=== PATIENT | female | born 1960 | race Caucasian/White ===

== ENCOUNTER 2020-04-08 08:41 | Outpatient (CLI) | payer OTHER, SELFPAY ==
--- NOTE | ~2020-04-08 | US_ITS ---
US abdomen complete INDICATION: Epigastric pain PROCEDURE: Realtime right upper abdominal ultrasound. COMPARISON: No prior studies for comparison. FINDINGS: The pancreas is normal without focal mass or pancreatic ductal dilation. Liver echotexture is normal without focal mass or intrahepatic biliary dilatation. There is normal directional flow i n the portal vein. Gallbladder is surgically absent. Common bile duct measures 4 mm. Renal echotexture is normal bilate rally without hydronephrosis, contour deforming mass or renal calculi. Right kidney measures 9.5 cm. Left kidney measures 9.8 cm. Spleen is unremarkable. Visualized aspects of the abdominal aorta and IV C are patent. IMPRESSION: 1: Unremarkable abdominal ultrasound post cholecystectomy. Reviewed, dictated and finalized at location A.
== END 2020-04-08 08:42 | disposition home or self-care (01) ==
LOC: ANHIMG 08:43
PROVIDERS: PCP Internal Medicine; Visit Provider Internal Medicine
DX: R10.13 Epigastric pain (principal)
CPT/HCPCS: 76700

== ENCOUNTER 2023-05-28 11:23 | Emergency (ER) | payer OTHER, SELFPAY ==
[2023-05-28 11:42] VITALS: BP 132/80; PULSE 105; RESP 16; TEMP 36.6; O2SAT 100
--- NOTE | 2023-05-28 12:10 | ED.SKABFB ---
HPI - Skin/Abscess/Foreign Bdy General Chief complaint: Skin/Abscess/Foreign Body Stated complaint: Rash under both arms and chest Time Seen by Provider: 05/28/23 11:51 Source: patient and RN notes reviewed Mode of arrival: ambulatory Limitations: no limitations History of Present Illness HPI narrative: Patient presents today complaining of a 2.5 month history of rash under her right axilla that has now spread to the left axilla chest. States that is pruritic. She is unsure cause. She has not evaluated for the rash until today. She has tried tea tree oil and a paste of calcium lactate. Patient is also requesting a refill of her omeprazole, but would like 10 mg instead of 20 as she is trying to wean herself off. Related Data Allergies Allergy/AdvReac Type Severity Reaction Status Date / Time acetaminophen Allergy Mild Verified 07/17/14 20:16 amoxicillin Allergy Mild Verified 07/17/14 20:16 codeine Allergy Mild Verified 07/17/14 20:16 hydrocodone Allergy Mild Verified 07/17/14 20:16 Review of Systems Review of Systems: CONSTITUTIONAL: Denies body aches, fever, chills, or sweats. EYES: Denies visual changes, redness, or discharge. ENT: Denies rhinorrhea, congestion, sore throat, or otalgia. CARDIOVASCULAR: Denies chest pain, palpitations, or edema. RESPIRATORY: Denies cough or dyspnea. GASTROINTESTINAL: Denies abdominal pain, nausea, vomiting, or diarrhea. GENITOURINARY: Denies dysuria or hematuria. SKIN: + rash MUSCULOSKELETAL: Denies back pain, joint pain, or myalgia. NEUROLOGIC: Denies headache, numbness, tingling, or weakness. PSYCH: Denies depression or anxiety. [facility] Past Medical History Medical History (Updated 05/28/23 @ 12:16 by Britney Taylor, [facility], ) GERD (gastroesophageal reflux disease) Comments At time of signature, I have reviewed and agree with nursing past medical, surgical, social and family history unless otherwise noted. Please see nursing chart for further information. There is no relevant family history pertinent to the presenting complaint Exam Narrative: GENERAL: Well-appearing, well-nourished, and in no acute distress. HEAD: Normocephalic, atraumatic. EYES: EOMI. No redness or drainage. Conjunctivae normal. ENT: Mucous membranes pink and moist. NECK: Normal AROM. CHEST: No respiratory distress. EXTREMITIES: Normal range of motion. No edema. SKIN: Warm, dry. Capillary refill normal. Normal skin turgor. 2 large erythematous macular patches with some mild scaling to the right axilla. 1 similar small patch to the left axilla. 3 smaller patches to the chest. No induration, fluctuance, or drainage noted. NEURO: No focal deficits. Alert and oriented x3. Gait steady. PSYCH: Normal affect. No signs of depression or anxiety. Course Course Level of Care: Express Care Visit Vital Signs Vital signs: Vital Signs Temperature 97.8 F 05/28/23 11:42 Pulse Rate 105 H 05/28/23 11:42 Respiratory Rate 16 05/28/23 11:42 Blood Pressure 132/80 05/28/23 11:42 Pulse Oximetry 100 05/28/23 11:42 Temperature 97.8 F 05/28/23 11:42 Pulse Rate 105 H 05/28/23 11:42 Respiratory Rate 16 05/28/23 11:42 Blood Pressure 132/80 05/28/23 11:42 Pulse Oximetry 100 05/28/23 11:42 Reviewed MDM - Skin/Abscess/Foreign Bdy MDM Narrative Medical decision making narrative: Will treat patient with combination of hydrocortisone and Lotrimin cream. Instructed her to follow up with her PCP in 10-14 days if symptoms did not improve. Patient agrees with plan.. Will refill her omeprazole. Patient is searching for a new primary. Differential Diagnosis Differential diagnosis: Likely abscess of skin or subcutaneous tissue, viral exanthem, dermatophytosis, cellulitis, eczema, impetigo and contact dermatitis Critical Care Time Critical Care Time Critical Care Time: No Discharge Plan Discharge Clinical Impression: Dermatitis, Medication refill Patient Dispo
== END 2023-05-28 12:23 | disposition home or self-care (01) ==
PROVIDERS: Emergency Provider Nurse Practitioner
DX: L30.9 Dermatitis, unspecified (principal); K21.9 Gastro-esophageal reflux disease without esophagitis
CPT/HCPCS: 99213; G0463